=== PATIENT | female | born 1955 | race Two or more races ===

== ENCOUNTER 2016-11-16 13:24 | Emergency (ER) | payer MEDICAID ==
[~2016-11-16] VITALS: Ht 154.9 cm; Wt 68.5 kg
[~2016-11-16 13:24] MED LIST: ASPIR 8181 MG ORAL; BENAZEPRIL HCL20 MG PO; CALCIUM 500 MG1 EACH PO; COUMADIN5 MG ORAL; FERROUS SULFAT325 MG PO; GABAPENTIN300 MG ORAL; GLUCOTROL10 MG PO; HUMALOG100 UNIT/1 SUBQ; HYDROCHLOROTH12.5 M2 ORAL; LANTUS SOL100 UNIT/1 SUBQ; LISINOPRIL10 MG ORAL; MECLIZINE HCL25 MG PO; METFORMIN HCL1000 M1 ORAL; METOPROLOL SUCC25 MG ORAL; NITROSTAT0.6 MG SL; NOVOLIN 70/305 UNIT1 SUBQ; PANTOPRAZOLE SO40 MG ORAL; PAROXETINE HCL20 MG PO; PEPCID20 MG PO; REGLAN IVP; REGLAN10 MG ORAL; SIMVASTATIN20 MG ORAL; TRAMADOL HCL50 MG PO; VITAMIN D250000 UNI1 ORAL; ZANTAC150 MG ORAL
[2016-11-16 13:46] VITALS: BP 123/70
[2016-11-16 14:36] LABS: BASOPHILS % (AUTO) 0.7 % (0.0-2.0); EOSINOPHILS % (AUTO) 1.1 % (0.0-3.0); LYMPHOCYTES % (AUTO) 38.7 % (20.0-45.0); MEAN CORPUSCULAR HEMOGLOBIN 29.5 PG (27.0-31.0); MEAN CORPUSCULAR HGB CONC 33.4 G/DL (32.0-36.0); MEAN CORPUSCULAR VOLUME 88 FL (80-99); MEAN PLATELET VOLUME 9.6 FL (6.5-10.1); MONOCYTES % (AUTO) 5.4 % (1.0-10.0); NEUTROPHILS % (AUTO) 54.1 % (45.0-75.0); PLATELET COUNT 268 K/UL (150-450); RED BLOOD COUNT 4.42 M/UL (4.20-5.40); RED CELL DISTRIBUTION WIDTH 12.4 % (11.6-14.8); WHITE BLOOD COUNT 6.9 K/UL (4.8-10.8)
[2016-11-16 14:46] LABS: APPEARANCE,URINE CLEAR; KETONES,URINE NEGATIVE (NEGATIVE); LEUKOCYTE ESTERASE ,URINE NEGATIVE (NEGATIVE); NITRITE,URINE NEGATIVE (NEGATIVE); PH,URINE 6 (4.5-8.0); PROTEIN,URINE NEGATIVE (NEGATIVE); UROBILINOGEN,URINE NORMAL MG/DL (0.0-1.0)
[2016-11-16 14:47] LABS: ALANINE AMINOTRANSFERASE 21 U/L (3-33); ALBUMIN/GLOBULIN RATIO 1.3 (1.0-2.7); ANION GAP 16 (5-15); ASPARTATE AMINO TRANSFERASE 14 U/L (5-40); CALCIUM 9.6 mg/dL (8.6-10.2); CARBON DIOXIDE 28 mEQ/L (20-30); CHLORIDE 94 mEQ/L (98-107); CREATININE 0.8 mg/dL (0.5-0.9); GLOMERULAR FILTRATION RATE > 60 mL/min (>60); HEMOLYSIS 8; LIPASE 62 U/L (< 60); POTASSIUM 3.9 mEQ/L (3.4-4.9); SODIUM 138 mEQ/L (135-145); TOTAL PROTEIN 7.6 g/dL (6.6-8.7)
--- NOTE | 2016-11-16 15:28 | Emergency Room Report ---
History of Present Illness General Chief Complaint: Abnormal Labs Source: Patient Present Illness HPI 61 YO Female presents to the Emergency department complaining abnormally high triglycerides and was sent from primary care office for ER evaluation. She reports intermittent vague abdominal pain about the umbilicus this for 3 months. Patient states she has a history of diabetes and high cholesterol. Patient denies nausea, vomiting, fevers, chills. She and states she does not currently have pain at this time. She denies constipation or diarrhea. Denies CP, Palpitations, LOC, AMS, dizziness, Changes in Vision, Sensation, paresthesias, or a sudden severe headache. Allergies: Coded Allergies: No Known Allergies (Unverified , 06/25/12) Patient History Past Medical History: see triage record Past Surgical History: none Pertinent Family History: none Last Menstrual Period: na Now: No Immunizations: UTD Reviewed Nursing Documentation: PMH: Agreed, PSxH: Agreed Nursing Documentation-PMH Past Medical History: No History, Except For Hx Cardiac Problems: Yes - high cholesterol Hx Hypertension: Yes Hx Diabetes: Yes Hx Cancer: No Hx Gastrointestinal Problems: Yes - HX OF EPIGASTRIC PAIN Hx Neurological Problems: No Review of Systems All Other Systems: negative except mentioned in HPI Physical Exam Vital Signs Date Time Temp Pulse Resp B/P Pulse Ox O2 Delivery O2 Flow Rate FiO2 11/16/17 13:27 98.1 81 18 123/70 98 Room Air Sp02 EP Interpretation: reviewed, normal General Appearance: no apparent distress, alert, GCS 15, non-toxic Head: normocephalic, atraumatic Eyes: bilateral eye PERRL, bilateral eye normal inspection ENT: hearing grossly normal, normal pharynx, no angioedema, normal voice Neck: full range of motion, supple/symm/no masses Respiratory: chest non-tender, lungs clear, normal breath sounds, speaking full sentences Cardiovascular #1: regular rate, rhythm, no edema Cardiovascular #2: 0 dorsalis pedis (R) Gastrointestinal: normal bowel sounds, non tender, soft, no guarding, no rebound Rectal: deferred Genitourinary: normal inspection, no CVA tenderness Musculoskeletal: back normal, gait/station normal, normal range of motion, non- tender Neurologic: alert, oriented x3, responsive, motor strength/tone normal, sensory intact, speech normal Psychiatric: judgement/insight normal, memory normal, mood/affect normal Skin: normal color, no rash, warm/dry, well hydrated Lymphatic: no adenopathy Medical Decision Making PA Attestation Dr. bedolla is my supervising Physician whom patient management has been discussed with. Diagnostic Impression: Primary Impression: Abnormal laboratory test result Additional Impressions: Encounter for medical screening examination Abdominal pain Qualified Codes: R10.84 - Generalized abdominal pain ER Course 61 YO Female presents to the Emergency department complaining abnormally high triglycerides and was sent from primary care office for ER evaluation. She reports intermittent vague abdominal pain about the umbilicus this for 3 months. Patient states she has a history of diabetes and high cholesterol. Patient denies nausea, vomiting, fevers, chills. She and states she does not currently have pain at this time. She denies constipation or diarrhea. --Pt has US abdomen scheduled for Monday. -- Spoke with BOAZ Gudino from PCP clinic- states pt. has normally elevated TAG 's however Today's value was unusually elevated and protocol is to send pt. for ED evaluation. Ddx considered but are not limited to Diverticulitis, acute appy, diarrhea,UC, PUD, GE, pancreatitis, gallstone Vital signs: are WNL, pt. is afebrile H&PE are most consistent with elevated TAG 3550, and total cholesterol 513 despite taking multiple anti-lipid medications. most likely laboratory error, pt. has no acute abdomen on PE. will assess lipase and amylase since that was not done by PCP. ORDERS: CBC: unremarkable - CMP: elevated glucose 254 ( pt. is due for her insulin ) - lipase: mildly elevated at 62 UA: glucose and proteinuria otherwise unremarkable. ED INTERVENTIONS: -d/w pt. results of lab results. I do not suspect an emergent condition at this time. with current presentation pt. is stable for close outpatient follow up. DISCHARGE: At this time pt. is stable for d/c to home. Will provide printed patient care instructions, and any necessary prescriptions. Care plan and follow up instructions have been discussed with the patient prior to discharge. Labs Test 11/16/16 14:20 11/16/16 14:25 Urine Color Pale yellow Urine Appearance Clear Urine pH 6 (4.5-8.0) Urine Specific [place] 1.015 (1.005-1.035) Urine Protein Negative (NEGATIVE) Urine Glucose (UA) 4+ (NEGATIVE) Urine Ketones Negative (NEGATIVE) Urine Occult Blood Negative (NEGATIVE) Urine Nitrite Negative (NEGATIVE) Urine Bilirubin Negative (NEGATIVE) Urine Urobilinogen Normal MG/DL (0.0-1.0) Urine Leukocyte Esterase Negative (NEGATIVE) White Blood Count 6.9 K/UL (4.8-10.8) Red Blood Count 4.42 M/UL (4.20-5.40) Hemoglobin 13.0 G/DL (12.0-16.0) Hematocrit 39.0 % (37.0-47.0) Mean Corpuscular Volume 88 FL (80-99) Mean Corpuscular Hemoglobin 29.5 PG (27.0-31.0) Mean Corpuscular Hemoglobin Concent 33.4 G/DL (32.0-36.0) Red Cell Distribution Width 12.4 % (11.6-14.8) Platelet Count 268 K/UL (150-450) Mean Platelet Volume 9.6 FL (6.5-10.1) Neutrophils (%) (Auto) 54.1 % (45.0-75.0) Lymphocytes (%) (Auto) 38.7 % (20.0-45.0) Monocytes (%) (Auto) 5.4 % (1.0-10.0) Eosinophils (%) (Auto) 1.1 % (0.0-3.0) Basophils (%) (Auto) 0.7 % (0.0-2.0) Sodium Level 138 mEQ/L (135-145) Potassium Level 3.9 mEQ/L (3.4-4.9) Chloride Level 94 mEQ/L (98-107) Carbon Dioxide Level 28 mEQ/L (20-30) Anion Gap 16 (5-15) Blood Urea Nitrogen 20 mg/dL (7-23) Creatinine 0.8 mg/dL (0.5-0.9) Estimat Glomerular Filtration Rate > 60 mL/min (>60) Glucose Level 254 mg/dL (74-106) Calcium Level 9.6 mg/dL (8.6-10.2) Total Bilirubin 0.3 mg/dL (0.0-1.2) Aspartate Amino Transf (AST/SGOT) 14 U/L (5-40) Alanine Aminotransferase (ALT/SGPT) 21 U/L (3-33) Alkaline Phosphatase 82 U/L (35-104) Total Protein 7.6 g/dL (6.6-8.7) Albumin 4.4 g/dL (3.5-5.2) Globulin 3.2 g/dL Albumin/Globulin Ratio 1.3 (1.0-2.7) Amylase Level 59 U/L (10-110) Lipase 62 U/L (< 60) Last Vital Signs Date Time Temp Pulse Resp B/P Pulse Ox O2 Delivery O2 Flow Rate FiO2 11/16/16 13:46 98.1 81 18 123/70 98 Room Air Disposition: HOME, SELF-CARE Condition: Stable Referrals: NON PHYSICIAN (PCP) Patient Instructions: High Cholesterol, Hyperglycemia, [id number] Additional Instructions: Take medications as directed. Follow up with PCP in 3 days Return sooner to ED if new symptoms occur, or current symptoms become worse. No acute elevation in lipase/amylase - Please note that this Emergency Department Report was dictated using [employer] and cranes inspector technology software, occasionally this can lead to erroneous entry secondary to interpretation by the dictation equipment. Meenu Foster Nov 16, 2016 15:28
[2016-11-16 15:30] VITALS: BP 126/72
[2016-11-16 15:31] VITALS: BP 126/72
== END 2016-11-16 15:45 | disposition home or self-care (01) ==
LOC: EMR 13:51
DX: R10.84 Generalized abdominal pain (principal); I10 Essential (primary) hypertension; E11.9 Type 2 diabetes mellitus without complications
CPT/HCPCS: 36415; 80053; 81003; 82150; 83690; 85025; 99283